=== PATIENT | male | born 1965 | race Caucasian/White ===

== ENCOUNTER → 2022-05-11 | Outpatient (CLI) | payer OTHER, SELFPAY ==
--- NOTE | 2022-05-11 16:58 | RAD_ITS ---
INDICATION: Trauma, work injury EXAMINATION/TECHNIQUE: X-RAY - LEFT XR Clavicle Unilateral 2 VIEWS COMPARISON: None. FINDINGS: SOFT TISSUES: No soft tissue swelling or gas. No radiopaque foreign body. BONES/JOINTS: No acute fracture. Joint spaces anatomically maintained. No sclerotic or destructive changes observed. RAD/Clavicle IMPRESSION: No acute bony abnormality. Electronically Signed: Clayton Joiner MD at 18:02 EST ,
--- NOTE | 2022-05-11 16:58 | RAD_ITS ---
INDICATION: Trauma, work injury EXAMINATION/TECHNIQUE: X-RAY - XR Spine Cervical 2 or 3 Views COMPARISON: None. FINDINGS: VERTEBRAE: Preserved vertebral body height. No acute fracture. No spondylolisthesis. Preservation of the normal cervical lordosis. DISCS: Degenerative disc space narrowing with spondylitic osteophytes C5-6 and C6-7. NECK SOFT TISSUES: No prevertebral soft tissue widening. LUNG APICES: Clear. RAD/Cerv Spine 2 or 3 Views IMPRESSION: Cervical spondylosis without acute bony abnormality. Electronically Signed: Clayton Joiner MD at 18:04 EST ,
== END | disposition home or self-care (01) ==
LOC: MTRAD 16:58
PROVIDERS: PCP Family Medicine; Referring Provider Physician Assistant Surgical; Visit Provider Physician Assistant Surgical
DX: S16.1XXA Strain of muscle, fascia and tendon at neck level, initial encounter (principal)
CPT/HCPCS: 72040; 73000

== ENCOUNTER 2022-06-28 17:30 | Outpatient (RCR) | payer OTHER, SELFPAY ==
--- NOTE | 2022-05-29 07:29 | HP.PTEVAL_ITS ---
Patient's Visit Information MANISHA MENDOZA is a 56 year old M referred to Physical Therapy by DANIELA Leonardo with a diagnosis of STRAIN NOF UNSPECIFIED MUSCLE ,TENDON SHOULDER LEFT ,STRAIN MUSCLE NECK. Date of Evaluation: 05/28/22 Physical Therapist: Manisha Shultz, PT, Cert MDT, OCS - Visit Plan Frequency: 3-4x/week Duration: 6 Weeks Plan: PT INTERVEVENTIONS ROM LEFT SHOULDER/CERVICAL ,POSTURAL STRENGTHENING , RTC/SCAPULAR STRENGTHENING AND MODALTIES NEEDED ,JOB SIMULATION TO RTW WITHOUT LIMIATIONS - Subjective This 56 y/o male presents to physical therapy with left shoulder and neck pain. Patient injury to left shoulder and cervical 02/16/23. 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 Seen DR 05/12/22 did x-rays of neck and shoulder s howed OA . Prescribed prednisone which patient stopped. Patient pain located anterior clavicle and shoulder and cervical pain left . Patient symptoms described as ache. Denies paresthesia/tingling. Aggravating leaning on shoulder ,pulling ,lifting overhead and unable to reach behind back. Alleviating factors rest ibuprofrin. Cervical pain is aggravating with looking up ,turning affects driving. Patient symptoms affects sleeping. Patient has cervical located occipital. Denies dizziness but tinnitus . Patient return to working with restriction with pushing/pulling and overhead work and lifting 20#. Patient goal no pain and RTW full. SOCAIL: . VOCATION: [employer] - Pain Left Shoulder Pain Intensity (Out of 10): 6 Pain Intensity Range: 10 Left Neck Pain Intensity (Out of 10): 7 Pain Intensity Range: 10 - Objective POSTURE: mild forward posture ,rounded shoulders head forward. PALAPTION: tender UT/levator , long head bicep. NEURO: denies paresthesia/tingling ,reflexes C5-C6-7 2/3. CERVICAL ROM: flexion min loss ,extension mod loss ,rotation mod loss ,lateral flexion mod loss. AROM : shoulder 145 degrees, abduction 150 degrees ,ER 90 degrees ,IR side of pelvis. MMT: (peak force) infraspinatus 17.2, subscapularis 19.7 ,supraspinatus 15.8 ,deltoid 22.1 of left shoulder - Special Tests L Shoulder Drop Sign - IS Test: Positive L Shoulder Empty Can - SS: Negative L Shoulder Neer - Impingement: Positive L Shoulder Real Lan - Impingement: Positive L Shoulder Speeds Test - Labrum/Biceps: Negative L Shoulder Shrug Sign - OA/Adhesive Capsulitis: Negative - Balance/Special Test Scores Quick DASH Score: 50.0000 - Goals Goal 1:: Patient to be I with HEP Goal Time Frame: 4-6 Weeks Goal 2:: Patient demonstrate 70% improvement with decrease pain and improved function with job demands. 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 and lifting without limitations Goal Time Frame: 4-6 Weeks - Rehabilitation Potential Physical Therapy Diagnosis: This patient has left shoulder pain left and neck with pain shoulder neck and decrease ROM shoulder , weakness left shoulder thus impairs ability with job demands benefits from skilled PT Rehabilitation Potential: Good - Anticipated Interventions Patient/Client Instruction: Educate patient on: Condition, Plan of Care For the Purpose of:: To decrease pain, To increase ROM, To improve muscle performance and motor function, To improve ability to perform ADL's, To increase tolerance to activity/condition/position, To improve ability of physical actions for home/community/work/leisure, To improve gait and locomotor functions, To improve health of tissue, To decrease soft tissue restriction, To increase flexibility/ROM, To prevent re-injury, Other Other: ROBI JAIME WITH LIMIATIONS Therapeutic Exercise to Include: Strength training, Endurance training, Postural training, Flexibilty training, Passive ROM, Active ROM, Scapular Streng th/Stabilization Comment: RTC For the Purpose of:: To decrease pain, To increase ROM, To improve muscle performance and motor function, To improve ability to perform ADL's, To improve performance and independence with ADL's, To decrease level of supervision to perform tasks, To improve health of tissue, To decrease soft tissue restriction, To increase flexibility/ROM, To prevent re-injury, Other Other: JOB DEMANDS WITH LIMITAIONS TENS: Yes IF ES: Yes Cryotherapy (ice pack, ice massage): Yes Thermo therapy (hot pack): Yes Ultrasound (thermal/non thermal): Yes For the Purpose of:: To decrease pain, To increase ROM, To improve nutrient delivery to tissue, To increase oxygenation perfusion, To improve health of tissue, To decrease soft tissue restriction, To increase flexibility/ROM, To improve endurance, To reduce risk of recurrence, To prevent re-injury, To improve tolerance to ADL's Thank you for the opportunity to evaluate your patient. For Medicare and Medicare HMO plans, please review the plan of care and approve it. It will need to be FAXED BACK to us at [phone] for Medicare purposes. For Medicare only, by signing this I certify the plan of care. Please let me know if there are questions or concerns regarding this plan of care. Physician Signature: Date:
--- NOTE | 2022-11-07 13:27 | HP.PTDCSUM ---
Discharge Summary D/C summary: It has been my pleasure to treat MANISHA MENDOZA referred by DANIELA Leonardo, with the diagnosis of STRAIN NOF UNSPECIFIED MUSCLE ,TENDON SHOULDER LEFT ,STRAIN MUSCLE NECK for a total of 12 visit(s). Discharge Date: Please see the following information for a summary of their discharge status. Subjective Subjective: Patient seen Dr plan to get MRI July [address] wants patient to follow the restriction Pain Left Shoulder: Pain Intensity (Out of 10): 5 Left Neck: Pain Intensity (Out of 10): 5 Overall Improvement % Improvement: 0 Objective Objective/Function: PALALPTION: tender long head bicep ,anterior AC AROM: shoulder flexion/abduction 140 degrees with pain ,ER 80 IR L5 MMT: (peak force) infraspinatus 13.8 ,supraspinatus 10.8 , deltoid anterior 13.4 , lateral 5 Goals Goal 1:: Patient to be I with HEP Goal 2:: Patient demonstrate 70% improvement with decrease pain and improved function with job demands. Goal 3:: Patient to improve AROM left shoulder flexion by 10 degrees to improve [place] activities and lifting for job demands Goal 4:: Patient to improve strength peak force of RTC/deltoid by 10 to improve ability with job demands Goal 5:: Patient to increase quick dash work demands by 5 points or> . Goal 6:: Patient to improve ability to perform [place] tasks and lifting without limitations Plan Plan: PLAN MRI D/C Information d/c sentence: If there are questions or concerns regarding this patient's physical therapy, please feel free to call me at [phone]. Thank you for the referral of this patient. Sincerely, Manisha Shultz, PT, Cert MDT, OCS Balance/Gait/Functional tests Balance/Special Test Scores Quick DASH Score: 50.0000
== END 2022-06-28 19:00 | disposition home or self-care (01) ==
LOC: PT 17:30
PROVIDERS: PCP Family Medicine; Referring Provider Physician Assistant Surgical; Visit Provider Physician Assistant Surgical
DX: S46.912D Strain of unspecified muscle, fascia and tendon at shoulder and upper arm level, left arm, subsequent encounter (principal); S16.1XXD Strain of muscle, fascia and tendon at neck level, subsequent encounter
CPT/HCPCS: 97110; 97162

== ENCOUNTER → 2022-07-12 | Outpatient (CLI) | payer OTHER, SELFPAY ==
--- NOTE | 2022-07-12 16:35 | MRI_ITS ---
INDICATION: pain EXAMINATION: MRI - MR Spine Cervical W/O Contrast TECHNIQUE: Multiplanar and multisequence MR images of the cervical spine were performed. IV Contrast Dosage and Agent: None. COMPARISON: 05/11/2022. FINDINGS: VERTEBRAE: Normal vertebral bodies and posterior elements. VERTEBRAL ALIGNMENT: Normal, including the craniocervical junction and cervicothoracic junction. No spondylolisthesis. There is preservation of the normal cervical lordosis. CERVICAL SPINAL CORD: Unremarkable in signal and morphology. C2/C3: Normal disc height and morphology. Normal spinal canal and neuroforamina. C3/C4: Normal disc height and morphology. Normal spinal canal and neuroforamina. C4/C5: Normal disc height and morphology. Normal spinal canal and neuroforamina. C5/C6, C6/C7: Mild spondylosis at C5-6 and C6-7 without significant disc bulge. Normal spinal canal and neuroforamina. C7/T1: Normal disc height and morphology. Normal spinal canal and neuroforamina. NECK SOFT TISSUES: No prevertebral soft tissue swelling. There is no cervical adenopathy. MRI/Spine Cervical (Routine) IMPRESSION: Mild spondylosis at C5-6 and C6-7 without significant disc bulge. Electronically Signed: Fabienne Dillard MD at 7:59 EDT ,
--- NOTE | 2022-07-12 17:05 | MRI_ITS ---
EXAM: MR LEFT UPPER EXTREMITY WITHOUT INTRAVENOUS CONTRAST, SHOULDER CLINICAL INDICATION: pain TECHNIQUE: Multiplanar and multisequence MR images of the left shoulder without intravenous contrast. This report was created using [employer] report generation technology. COMPARISON: None. FINDINGS: TENDONS: SUPRASPINATUS: Unremarkable. No supraspinatus tendon tear. INFRASPINATUS: Unremarkable. No infraspinatus tendon tear. SUBSCAPULARIS: Unremarkable. Intact. TERES MINOR: Unremarkable. Intact. BICEPS BRACHII, LONG HEAD: Intact long head of the biceps tendon which is normal in position and appearance. No os acromiale. The extra-articular biceps tendon is in the bicipital groove. LIGAMENTS: GLENOHUMERAL: Unremarkable. Intact. MUSCLES: Unremarkable. No rotator cuff muscle atrophy. FLUID: Unremarkable. No joint effusion. No subacromial-subdeltoid space bursal fluid. No bursitis. CARTILAGE: Unremarkable. Articular cartilage intact. GLENOID LABRUM: Unremarkable. No definite labral tear. BONES/JOINTS: Moderate to severe hypertrophic degenerative changes of the acromioclavicular joint with mild to moderate mass effect on the underlying soft tissues. Small amount of glenohumeral joint fluid. OTHER SOFT TISSUES: Unremarkable. No rotator interval edema. MRI/Upper Ext Joint Only(Routine) IMPRESSION: Moderate to severe hypertrophic degenerative changes of the acromioclavicular joint with mild to moderate mass effect on the underlying soft tissues. No significant rotator cuff or labral tear at this time. Electronically Signed: Abdoulaye Varghese MD at 3:11 EDT ,
== END | disposition home or self-care (01) ==
LOC: MRI 15:52
PROVIDERS: PCP Family Medicine; Referring Provider Physician Assistant Surgical; Visit Provider Physician Assistant Surgical
DX: S46.912A Strain of unspecified muscle, fascia and tendon at shoulder and upper arm level, left arm, initial encounter (principal); S16.1XXA Strain of muscle, fascia and tendon at neck level, initial encounter
CPT/HCPCS: 72141; 73221

== ENCOUNTER 2023-10-21 07:52 | Emergency (ER) | payer BC, SELFPAY ==
[2023-10-21] VITALS (20 sets, daily range): BP systolic 112–190; BP diastolic 75–180; PULSE 46–162; RESP 13–23; TEMP 36.2–36.4; O2SAT 93–99; BMI 31.4
--- NOTE | 2023-10-21 08:01 | EX.ED.DYSGE1 ---
HPI History of Present Illness Chief Complaint: Palpitations Informant: patient Onset/Context/Timing Onset: Today and Hours (1) Context: Sudden Onset Timing: Continuous Quality: Rapid heartbeat Location: Chest Worsened by: Nothing Relieved by: Nothing Narrative Narrative: Patient presents with palpitations that began approximate 1 hour prior to arrival. Patient states he has a history of paroxysmal atrial fibrillation and feels like he went back into it this morning. Patient states his heart feels like it was beating fast. Patient admits to some lightheadedness and dizziness. Patient states nothing makes it better and nothing makes it worse. Patient denies any chest pain. Patient admits to some shortness of breath with exertion today. Patient denies any fevers or chills. Patient denies any nausea or vomiting. Patient denies any diaphoresis. 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 [facility] Medical History Palpitations PVC (premature ventricular contraction) Hypertriglyceridemia Essential (primary) hypertension Hypothyroidism CAD in [place] artery Paroxysmal atrial fibrillation Knee pain Chronic headaches Arthritis Home Medications ?Medication ?Instructions ?Recorded ?Last Taken ?Type metoprolol succinate 50 mg 50 mg PO BID 03/12/23 Unknown History tablet,extended release 24 hr (Toprol XL) prasugrel 10 mg tablet (Effient) 10 mg PO DAILY 03/12/23 Unknown History losartan 50 mg tablet 50 mg PO DAILY 04/01/23 Unknown History cholecalciferol (vitamin D3) 1,250 50,000 unit PO QWEEK 07/02/23 Unknown History mcg (50,000 unit) capsule levothyroxine 175 mcg tablet 175 mcg PO DAILY 07/02/23 Unknown History prednisone 20 mg tablet 30 mg PO DAILY 07/02/23 Unknown History rivaroxaban 20 mg tablet (Xarelto) 20 mg PO QPM 42 days #42 tabs 10/21/23 Unknown Rx Allergy/AdvReac Type Severity Reaction Status Date / Time No Known Allergies Allergy Unverified 07/02/23 16:00 Family History Father Afib CVA (cerebral vascular accident) Mother COPD (chronic obstructive pulmonary disease) Heart disease Surgical History H/O knee surgery Hx of cholecystectomy Social History Smoking Status: Never smoker alcohol intake: current alcohol intake frequency: a few times a month ROS ROS ED Constitutional Constitutional ED: Denies chills or fever(s) Eyes Eyes: Denies blurry vision or change in vision ENT ENT ED: Denies rhinorrhea or sore throat Cardiovascular Cardiovascular: Reports palpitations; Denies chest pain Respiratory/Chest Respiratory/Chest: Reports dyspnea and dyspnea on exertion; Denies cough Gastrointestinal Gastrointestinal: Denies nausea or vomiting Genitourinary Genitourinary ED: Denies dysuria or hematuria Musculoskeletal Musculoskeletal: Denies back pain or neck pain Integumentary Denies abscess or rash Neurologic Neurologic: Denies headache(s) or weakness Allergic/Immunologic Allergic/Immunologic ED: Denies mouth swelling or urticaria EXAM Physical Exam Const Vital Signs: 10/21/23 07:53 10/21/23 08:00 10/21/23 08:00 Temperature 97.1 F L Temperature Source Temporal Pulse Rate 162 H 154 H Pulse Rate [1 (Initial Baseline)] Pulse Rate [2] Pulse Rate [3] Respiratory Rate 20 H 20 H Respiratory Rate [1 (Initial Baseline)] Respiratory Rate [2] Respiratory Rate [3] Respiratory Effort Normal Blood Pressure 190/180 H 158/118 H Blood Pressure [1 (Initial Baseline)] Blood Pressure [2] Blood Pressure [3] Blood Pressure Mean 183 132 Pulse Ox 99 97 Oxygen Delivery Method Room Air Oxygen Delivery Method [1 (Initial Baseline)] Oxygen Delivery Method [2] Oxygen Delivery Method [3] 10/21/23 08:08 10/21/23 08:15 10/21/23 08:30 Temperature Temperature Source Pulse Rate 156 H 83 Pulse Rate [1 (Initial Baseline)] Pulse Rate [2] Pulse Rate [3] Respiratory Rate 15 23 H Respiratory Rate [1 (Initial Baseline)] Respiratory Rate [2] Respiratory Rate [3] Respiratory Effort Blood Pressure 184/158 H 139/111 H Blood Pressure [1 (Initial Baseline)] Blood Pressure [2] Blood Pressure [3] Blood Pressure Mean 164 119 Pulse Ox 98 98 97 Oxygen Delivery Method Room Air Oxygen Delivery Method [1 (Initial Baseline)] Oxygen Delivery Method [2] Oxygen Delivery Method [3] 10/21/23 08:45 10/21/23 09:00 10/21/23 09:15 Temperature Temperature Source Pulse Rate 77 82 Pulse Rate [1 (Initial Baseline)] Pulse Rate [2] Pulse Rate [3] Respiratory Rate 14 13 Respiratory Rate [1 (Initial Baseline)] Respiratory Rate [2] Respiratory Rate [3] Respiratory Effort Blood Pressure 139/101 H 145/96 H 134/90 H Blood Pressure [1 (Initial Baseline)] Blood Pressure [2] Blood Pressure [3] Blood Pressure Mean 112 110 103 Pulse Ox 97 96 Oxygen Delivery Method Room Air Oxygen Delivery Method [1 (Initial Baseline)] Oxygen Delivery Method [2] Oxygen Delivery Method [3] 10/21/23 09:30 10/21/23 09:50 10/21/23 10:00 Temperature Temperature Source Pulse Rate 84 Pulse Rate [1 (Initial Baseline)] Pulse Rate [2] Pulse Rate [3] Respiratory Rate 16 Respiratory Rate [1 (Initial Baseline)] Respiratory Rate [2] Respiratory Rate [3] Respiratory Effort Blood Pressure 125/96 H 125/96 H Blood Pressure [1 (Initial Baseline)] Blood Pressure [2] Blood Pressure [3] Blood Pressure Mean 106 105 Pulse Ox 98 97 Oxygen Delivery Method Room Air Oxygen Delivery Method [1 (Initial Baseline)] Oxygen Delivery Method [2] Oxygen Delivery Method [3] 10/21/23 10:00 10/21/23 11:00 10/21/23 12:09 Temperature Temperature Source Pulse Rate 84 97 113 H Pulse Rate [1 (Initial Baseline)] Pulse Rate [2] Pulse Rate [3] Respiratory Rate 16 16 14 Respiratory Rate [1 (Initial Baseline)] Respiratory Rate [2] Respiratory Rate [3] Respiratory Effort Blood Pressure 136/108 H 136/89 H 134/95 H Blood Pressure [1 (Initial Baseline)] Blood Pressure [2] Blood Pressure [3] Blood Pressure Mean 115 104 108 Pulse Ox 97 97 96 Oxygen Delivery Method Room Air Room Air Oxygen Delivery Method [1 (Initial Baseline)] Oxygen Delivery Method [2] Oxygen Delivery Method [3] 10/21/23 13:26 10/21/23 13:26 10/21/23 13:34 Temperature 97.6 F L Temperature Source Pulse Rate 95 113 H Pulse Rate [1 (Initial Baseline)] 112 H Pulse Rate [2] 121 H Pulse Rate [3] 46 L Respiratory Rate 16 16 Respiratory Rate [1 (Initial Baseline)] 16 Respiratory Rate [2] 16 Respiratory Rate [3] 18 Respiratory Effort Blood Pressure 145/88 H 145/88 H Blood Pressure [1 (Initial Baseline)] 140/98 H Blood Pressure [2] 140/98 H Blood Pressure [3] 112/94 H Blood Pressure Mean 107 Pulse Ox 97 97 Oxygen Delivery Method Room Air Room Air Oxygen Delivery Method [1 (Initial Baseline)] Room Air Oxygen Delivery Method [2] Room Air Oxygen Delivery Method [3] Room Air 10/21/23 13:42 10/21/23 13:46 10/21/23 13:50 Temperature Temperature Source Pulse Rate Pulse Rate [1 (Initial Baseline)] Pulse Rate [2] Pulse Rate [3] Respiratory Rate Respiratory Rate [1 (Initial Baseline)] Respiratory Rate [2] Respiratory Rate [3] Respiratory Effort Blood Pressure Blood Pressure [1 (Initial Baseline)] Blood Pressure [2] Blood Pressure [3] Blood Pressure Mean Pulse Ox Oxygen Delivery Method Room Air Room Air Room Air Oxygen Delivery Method [1 (Initial Baseline)] Oxygen Delivery Method [2] Oxygen Delivery Method [3] Positive well nourished and well developed General Appearance ED: well developed and NAD HEENT Reports moist mucous membranes Neck supple and no JVD Chest Wall inspection of chest normal and palpation of chest normal Resp normal respiratory effort and clear to auscultation bilaterally Cardio Rate: tachycardic Rhythm: abnormal rhythm irregularly irregular GI non-tender and non-distended Palpation: soft Extremity normal to inspection General Extremety ED: Negative for edema or tenderness General Extremity: Negative for edema Neuro oriented x3, CN's II-XII intact bilaterally and no sensory deficits noted Sensorium / Orientation: alert Motor Exam: strength 5/5 throughout Psych mental status grossly normal MDM MDM MDM Narrative Medical decision making narrative: Differential diagnosis includes A-fib with rapid ventricular response, cardiac ischemia, electrolyte abnormality, hypothyroidism, hyperthyroidism, pneumonia, and pneumothorax. EKG will be obtained to assess for cardiac dysrhythmia and cardiac ischemia. X-ray will be obtained to assess for pneumonia and pneumothorax. CBC will be obtained to assess for leukocytosis and anemia. Basic metabolic profile will be obtained to assess for electrolyte abnormality and renal function. High-sensitivity troponin will be obtained to assess for cardiac ischemia. 2-hour repeat high-sensitivity troponin will be obtained to assess for ongoing cardiac ischemia. TSH will be obtained to assess for hyperthyroidism and hypothyroidism. Lab Data Attestation: I reviewed the patient's lab results. Lab results narrative: CBC was reviewed. There is a mild leukocytosis of 15.0. The remainder is within normal limits. Basic metabolic profile was reviewed and was essentially within normal limits. High-sensitivity troponin was reviewed and was normal at 6. 2-hour repeat high-sensitivity troponin was reviewed and was normal at 6. TSH was reviewed and was elevated at 27.8. Labs: Laboratory Results - last 24 hr 10/21/23 10/21/23 08:05 10:05 WBC 15.0 H RBC 4.85 Hgb 14.8 Hct 44.1 MCV 90.9 MCH 30.5 MCHC 33.6 RDW Std Deviation 41.6 RDW Coeff of Alondra 12.7 Plt Count 285 MPV 9.8 Immature Gran % (Auto) 2.100 H Neut % (Auto) 75.7 H Lymph % (Auto) 15.2 L [place] % (Auto) 5.8 Eos % (Auto) 0.6 Baso % (Auto) 0.6 Absolute Neuts (auto) 11.3 H Absolute Lymphs (auto) 2.28 Nucleated RBC % 0 Sodium 138 Potassium 4.2 Chloride 106 Carbon Dioxide 25.0 Anion Gap 7 BUN 14 Creatinine 0.93 Estim Creat Clear Calc 119.29 Est GFR (MDRD) Af Amer 107 Est GFR (MDRD) Non-Af 88 BUN/Creatinine Ratio 15.0 Glucose 158 H Calcium 9.3 Magnesium 2.0 Troponin I High Sens 6 6 TSH 27.80 H Radiography Chest X-Ray - ED: 1 View, Read by ED Physician, Read by Radiologist and No Acute Disease Diagnostic Testing: Clinical Impression(s) from Imaging Studies Chest X-Ray 10/21/23 08:13 IMPRESSION: Normal x-ray examination of the chest. Electronically Signed: Beau Santos MD at 8:27 EDT , Portable 1 view chest x-ray was obtained. On my independent interpretation, lung lag[place] are clear. There is normal cardiac silhouette. Bony thorax is normal. There is no acute process noted. Radiologist also interpreted the x-ray and agrees. EKG Initial EKG: Attestation: I personally reviewed and interpreted this EKG as follows: Interpretation: Atrial Fibrillation (150) and Non-Specific ST Changes Comments: EKG was obtained. On my independent interpretation, shows atrial fibrillation with a rate of 150. QRS interval is normal at 92 ms. QTc interval was slightly prolonged at 464 ms. There is left axis deviation at -36. There are nonspecific ST-T wave changes noted. Prior EKG tracings: available for review Prior: Unchanged (03/07/2023) Follow-up EKG: Attestation: I personally reviewed and interpreted this EKG as follows: Interpretation: No Acute Injury Pattern and Sinus Bradycardia (54) Comments: EKG was obtained. On my independent interpretation, it showed a sinus bradycardia with a rate of 54. [place] interval, QRS interval, and QTc intervals were all normal. [place] was normal. There are no acute ST or T wave changes. Treatment and Re-Evaluation :: Patient was given aspirin. Patient was started on Cardizem. Patient's heart rate improved but remained in atrial fibrillation. Patient requested to be cardioverted. Case was discussed with Dr. Klein from cardiology. He agrees with this. He recommended starting the patient back on his Xarelto. Patient was given a dose of Xarelto here. Informed consent was obtained. Patient was advised of the risks and benefits of sedation and cardioversion. Patient was given the opportunity ask questions. Patient had no further questions. Patient was sedated with a total of 100 mg of propofol. After adequate sedation, the patient was cardioverted with 150 J of synchronized cardioversion without success. Patient was then cardioverted with 200 J of synchronized cardioversion with return to a sinus bradycardia. Patient woke up without any complications. Patient had no hypoxic episodes. Repeat EKG will be obtained. Procedures Procedural Sedation 1 (Initial Baseline): Consent Signed: Yes Any Problems With Anesthesia: No You/Your family experience fever (hyperthermia) w/anesthesia: No Sedation medication: Propofol Dose: 100 Route: IV [place]amp[place] Score: Class II ASA Classification: II Discharge Plan Triage Chief Complaint: Palpitations ED Provider: Riley Downing Dx/Rx/DC Orders Clinical Impression: Paroxysmal atrial fibrillation, Hypothyroidism, Palpitations Instructions: ED AFIB, ED Hypothyroidism Prescriptions: Changed Xarelto 20 mg tablet 20 mg PO QPM 42 Days Qty: 42 0RF Rx Instructions: must administer with evening meal No Action metoprolol succinate [Toprol XL] 50 mg tablet extended release 24 hr 50 mg PO BID prasugrel [Effient] 10 mg tablet 10 mg PO DAILY losartan 50 mg tablet 50 mg PO DAILY levothyroxine 175 mcg tablet 175 mcg PO DAILY Patient Comments: take 1 tablet by mouth once daily cholecalciferol (vitamin D3) 1,250 mcg (50,000 unit) capsule 50,000 unit PO QWEEK Patient Comments: TAKE 1 CAPSULE BY MOUTH ONCE A WEEK prednisone 20 mg tablet 30 mg PO DAILY Primary Care Provider: Jack Davenport Referrals: Jack Davenport DO [Primary Care Provider] - 5-7 Days Zack Chamorro MD [Med Staff - Active Staff] - 5-7 Days Print Language: Croatian Disposition Disposition: Home, Self Care
--- NOTE | 2023-10-21 08:13 | RAD_ITS ---
STUDY: X-RAY CHEST REASON FOR EXAM: Male, 57 years old. Chest pain TECHNIQUE: Single AP portable view of the chest. COMPARISON: EKG electrodes are seen. FINDINGS: The lungs are clear and expanded. There is no demonstrated pleural abnormality. Normal size heart. Normal mediastinum and navin. Normal visualized pulmonary arteries. Normal visualized aortic arch and descending thoracic aorta. There are degenerative changes of the visualized thoracic spine. Normal visualized ribs, clavicles, and shoulders. There is no demonstrated abnormality of the visualized soft tissue structures of the upper abdomen. RAD/Chest 1 View (Portable) IMPRESSION: Normal x-ray examination of the chest. Electronically Signed: Beau Santos MD at 8:27 EDT ,
--- NOTE | 2023-10-21 08:15 | EKG12_ITS ---
Test Reason : PALPITATIONS Blood Pressure : / mmHG Vent. Rate : 150 BPM Atrial Rate : 000 BPM P-R Int : 000 ms QRS Dur : 092 ms QT Int : 294 ms P-R-T Axes : 000 -36 085 degrees QTc Int : 464 ms Critical Test Result: High HR Atrial fibrillation with rapid ventricular response Left axis deviation Nonspecific ST and T wave abnormality Abnormal ECG Confirmed by Bob Klein ([id number]), editor house organ KAYLA MCDONALD ([id number]) on 10/22/2023 8:05:43 AM Referred By: EMILIANA Confirmed By:Bob Klein
[2023-10-21] MEDS: Aspirin 81 MG TAB.CHEW 324 MG PO (08:17)
[2023-10-21] MEDS: dilTIAZem 25 MG/5 ML Vial IV BOLUS (08:17)
[2023-10-21 08:19] LABS: Absolute Lymphocyte Count 2.28 X10^3/uL (0.83-4.51); Absolute Neutrophil Count 11.3 X10^3/uL (2.0-7.7); Basophil# 0.09 X10^3/uL; Basophil% 0.6 % (0-1); Eosinophil# 0.09 X10^3/uL; Eosinophils% 0.6 % (0-5); Hematocrit 44.1 % (40-54); Hemoglobin 14.8 g/dL (13.0-16.5); Lymphocyte # 2.28 X10^3/ul (0.83-4.51); Lymphocyte % 15.2 % (19-41); Mean Corp Hgb Conc 33.6 g/dL (32-36); Mean Corpuscular Hgb 30.5 pg (27.0-32.0); Mean Corpuscular Volume 90.9 fL (80-94); Mean Platelet Vol. 9.8 fl (6.2-12.0); Monocyte# 0.87 X10^3/uL; Monocyte% 5.8 % (0-10); NRBC Flagged by Analyzer 0 % (0-5); Neutrophil # 11.34 X10^3/uL (2.7-7.7); Neutrophil % 75.7 % (47-70); Platelet Count 285 K/mm3 (150-450); RBC Distribution Width CV 12.7 % (11.6-14.6); RBC Distribution Width SD 41.6 fl (35.1-43.9); Red Blood Count 4.85 M/mm3 (4.6-6.2)
[2023-10-21 08:52] LABS: Anion Gap 7 (5-15); BUN 14 mg/dL (7-18); Calcium,Total 9.3 mg/dL (8.5-10.1); Chloride 106 mmol/L (98-107); Creatinine, Serum 0.93 mg/dL (0.70-1.30); EST Glomerular Filtration Rate 88 mL/min (>60); Est Glom Filt Rate - Afr Amer 107 mL/min (>60); Estimated Creatinine Clearance 119.29 ml/min; Glucose 158 mg/dL (74-106); Potassium 4.2 mmol/L (3.5-5.1); Sodium Level 138 mmol/L (136-145); Troponin-I HS (w/2H Reflex) 6 pg/mL (3.0-78.0)
[2023-10-21 10:13] LABS: Reflex Troponin-HS? (from REC) Y
[2023-10-21 10:45] LABS: Troponin-I HS 6 pg/mL (3.0-78.0)
[2023-10-21] MEDS: Rivaroxaban 20 MG Tablet PO (11:24)
[2023-10-21] MEDS: Propofol 200 MG/20 ML Vial IV BOLUS (13:26)
--- NOTE | 2023-10-21 13:49 | EKG12_ITS ---
Test Reason : REPEAT Blood Pressure : / mmHG Vent. Rate : 054 BPM Atrial Rate : 054 BPM P-R Int : 146 ms QRS Dur : 096 ms QT Int : 402 ms P-R-T Axes : 044 -15 023 degrees QTc Int : 381 ms Sinus bradycardia Otherwise normal ECG Confirmed by Bob Klein ([id number]), story editor KAYLA MCDONALD ([id number]) on 10/22/2023 8:05:57 AM Referred By: Confirmed By:Bob Klein
== END 2023-10-21 14:24 | disposition home or self-care (01) ==
PROVIDERS: Emergency Provider Emergency Medicine; PCP Family Medicine; Visit Provider Emergency Medicine
DX: I48.0 Paroxysmal atrial fibrillation (principal); E03.9 Hypothyroidism, unspecified; R00.2 Palpitations; I25.10 Atherosclerotic heart disease of native coronary artery without angina pectoris
CPT/HCPCS: 71045; 80048; 83735; 84443; 84484; 85025; 92960; 93005; 96374; 99283; J7030; A4216

== ENCOUNTER 2024-11-16 07:14 | Observation (INO) | payer BC, SELFPAY ==
[2024-11-16] VITALS (13 sets, daily range): BP systolic 127–201; BP diastolic 64–105; PULSE 48–60; RESP 13–18; TEMP 36.2–37.3; O2SAT 95–100; BMI 71.8; BMI 31.8
--- NOTE | 2024-11-16 07:22 | EKG12_ITS ---
Test Reason : CP Blood Pressure : */* mmHG Vent. Rate : 59 BPM Atrial Rate : 59 BPM P-R Int : 160 ms QRS Dur : 96 ms QT Int : 402 ms P-R-T Axes : 80 -10 34 degrees QTcB Int : 397 ms Sinus bradycardia Otherwise normal ECG Confirmed by Bob Klein ([id number]), brands editor KAYLA MCDONALD ([id number]) on 11/17/2024 1:14:17 PM Referred By: TL/BB Confirmed By: Bob Klein
--- NOTE | 2024-11-16 07:22 | RAD_ITS ---
PROCEDURE: CHEST 1 VIEW (PORTABLE) 11/16/2024 REASON FOR EXAM: CHEST PAIN TECHNIQUE: Frontal view of the chest. COMPARISON: Chest x-ray study dated 10/21/2023. FINDINGS: Hardware: Cardiac leads overlie the chest. Heart: Heart size and configuration are within normal limits. Mediastinum: Pulmonary vasculature is unremarkable. Trachea is midline. Mediastinal silhouette is within normal limits. Lungs: Lungs are expanded and clear without evidence of atelectasis, consolidation, effusion or pneumonic infiltrate. There are no pneumothoraces. Bones: Mild degenerative changes of the thoracic spine are noted. The remaining bony thorax appears unremarkable. Other: Soft tissues appear unremarkable. RAD/Chest 1 View (Portable) IMPRESSION: No acute cardiopulmonary process is identified radiographically. Reading Location: [id number]
--- NOTE | 2024-11-16 07:26 | ED.VIS.CHEST ---
HPI History of Present Illness Chief Complaint: Chest Pain Informant: patient Narrative Narrative: Waxing waning chest heaviness since . Reports dyspnea worse with exertion. Pain into his back. Over the weekend noted change in color balance feet. No pain in this. Hypertension hyperlipidemia. Mother AR in the 50s. She reported maker lesion 2 years ago with 1 stent placed at [facility]. He is currently followed by Dr. Chamorro. Currently on aspirin. None taken today. He states followed up 4 weeks ago everything was fine. He had a cough on Saturday that resolved. No recent travel surgeries or immobilizations. No history of PE or DVT. States this feels similar to when he had symptoms leading to his stent 2 years ago. No stress test since then. Pain is 4 out of 10 currently. Prior Similar Symptoms: Yes and With Prior AR CVD Risk Factors: Positive for Hypertension, Hypercholesterolemia and Family History 1' </=55; Negative for Diabetes or Smoking PE Risk Factors: Negative for Recent Travel/Surgery, Recent Immobilization or Prior DVT or PE [facility] Medical History Palpitations PVC (premature ventricular contraction) Hypertriglyceridemia Essential (primary) hypertension Hypothyroidism CAD in [place] artery Paroxysmal atrial fibrillation Knee pain Chronic headaches Arthritis Home Medications ?Medication ?Instructions ?Recorded ?Last Taken ?Type losartan 50 mg tablet 50 mg PO DAILY 04/01/23 11/16/24 History cholecalciferol (vitamin D3) 1,250 50,000 unit PO QWEEK 07/02/23 11/15/24 History mcg (50,000 unit) capsule folic acid 1 mg tablet 1 mg PO QDAY 04/07/24 11/16/24 History hydroxychloroquine 200 mg tablet 200 mg PO BID 04/07/24 11/16/24 History methotrexate sodium 2.5 mg tablet 20 mg PO QWEEK 04/07/24 11/15/24 History levothyroxine 200 mcg tablet 200 mcg PO QDAY 08/20/24 11/15/24 History metoprolol succinate 50 mg 50 mg PO BID #180 tabs 08/20/24 11/16/24 Rx tablet,extended release 24 hr tramadol 50 mg tablet 100 mg PO TID PRN pain 08/20/24 11/16/24 History escitalopram oxalate 20 mg tablet 20 mg PO DAILY 11/16/24 11/16/24 History ibuprofen 200 mg tablet (Advil) 400 mg PO Q6H PRN fever or pain 11/16/24 11/15/24 History Allergy/AdvReac Type Severity Reaction Status Date / Time No Known Allergies Allergy Verified 11/16/24 07:16 Family History Father Afib CVA (cerebral vascular accident) Mother COPD (chronic obstructive pulmonary disease) Heart disease Surgical History H/O knee surgery Hx of cholecystectomy Social History Smoking Status: Former smoker alcohol intake: current alcohol intake frequency: a few times a month ROS ROS ED Constitutional Constitutional ED: Denies chills, fever(s) or sweats ENT ENT ED: Denies sore throat Cardiovascular Cardiovascular: Reports chest pain; Denies leg edema, palpitations or racing heartbeat Respiratory/Chest Respiratory/Chest: Reports cough and dyspnea; Denies dyspnea on exertion Gastrointestinal Gastrointestinal: Denies abdominal pain, diarrhea, nausea or vomiting Genitourinary Genitourinary ED: Denies dysuria, hematuria or urinary frequency Musculoskeletal Musculoskeletal: Denies back pain, extremity pain or neck pain Integumentary Denies rash or wounds Neurologic Neurologic: Denies headache(s), paresthesias or weakness EXAM Physical Exam Const Vital Signs: 11/16/24 07:14 11/16/24 07:16 11/16/24 07:16 Temperature 99.1 F 98.7 F Temperature Source Oral Temporal Pulse Rate 59 L 60 Respiratory Rate 16 14 Respiratory Effort Normal Blood Pressure 201/97 H 165/105 H Blood Pressure Mean 131 125 Pulse Ox 99 99 Oxygen Delivery Method Room Air Room Air 11/16/24 07:38 11/16/24 07:53 11/16/24 08:14 Temperature 98.1 F Temperature Source Oral Pulse Rate 55 L 52 L Respiratory Rate 13 Respiratory Effort Blood Pressure 164/101 H 147/89 H Blood Pressure Mean 108 Pulse Ox 97 Oxygen Delivery Method Room Air Room Air 11/16/24 08:18 11/16/24 08:53 Temperature Temperature Source Pulse Rate 51 L 49 L Respiratory Rate Respiratory Effort Blood Pressure 143/85 H 127/83 H Blood Pressure Mean Pulse Ox Oxygen Delivery Method Positive well nourished and well developed General Appearance ED: well developed and NAD HEENT Reports moist mucous membranes normocephalic and atraumatic Eyes General Eye ED: Yes normal appearance of both eyes Neck full ROM Chest Wall Chest: Negative for tenderness Resp normal respiratory effort and normal air movement Effort and Inspection: symmetric chest movement; Negative for respiratory distress Cardio regular rate, regular rhythm and no murmurs Peripheral Pulses: pulses 2+ throughout GI normal to inspection, nondistended, normoactive bowel sounds and non-tender Palpation: Negative for guarding or rebound tenderness present Extremity normal to inspection General Extremety ED: Negative for edema or tenderness General Extremity: Negative for edema Neuro oriented x3 and no sensory deficits noted Sensorium / Orientation: awake and alert Skin no rashes or lesions noted and no wounds Heart Score History: Moderately Suspicious ECG: Normal Age: >45 - <65 years Risk Factors: >/= 3 Risk Factors or History of CAD Troponin: </= Normal Limit Score: 4 MDM MDM MDM Narrative Medical decision making narrative: Interventions / MDM: Differential diagnosis: Chest pain, history of coronary disease, history of hypertension Diagnosis considered but do not suspect: No clinical PE symptoms, no hypoxia no tachycardia My EKG interpretation: Sinus rate of 59, no ST or T wave changes QTc 397. Imaging independently reviewed and interpreted by myself: 1 view chest x-ray: No acute process. External documents reviewed: N/A Test considered but not ordered:N/A ED course: Persistent chest heaviness for last 4 days. Waxing waning worse with exertion similar to AR 2 years ago. EKG obtained sinus rhythm rate of [address] or T wave changes. Cardiac workup initiated. Aspirin ordered nitro sublingual ordered. 0818: After 1 nitro symptoms down to 2 headache with Tylenol was given. Additional nitro being given currently. 0835: Pain-free after second nitroglycerin. Transdermal nitro placed. Initial troponin returned at 7. Creatinine 0.72. Hemoglobin 13.2. Chest x-ray negative. With symptoms similar to his AR couple years ago currently symptom-free. No recent stress test. Will discuss with hospitalist service for admission. I spoke with Dr. Hill for admission to PCU. Re-evaluation: stable Disposition discussed with patient/family/significant other: Patient and family Case discussed with consulting clinician: Hospitalist This note was generated with [employer] dictation software. It may contain incorrect words, spelling, and punctuation that were not noted in checking the note before signing. Lab Data Attestation: I reviewed the patient's lab results. Labs: Laboratory Results - last 24 hr 11/16/24 07:50 WBC 8.6 RBC 4.15 L Hgb 13.2 Hct 37.5 L MCV 90.4 MCH 31.8 MCHC 35.2 RDW Std Deviation 44.5 H RDW Coeff of Alondra 13.7 Plt Count 207 MPV 9.9 Immature Gran % (Auto) 1.400 H Neut % (Auto) 69.0 Lymph % (Auto) 19.5 [place] % (Auto) 8.4 Eos % (Auto) 1.3 Baso % (Auto) 0.4 Absolute Neuts (auto) 5.9 Absolute Lymphs (auto) 1.67 Nucleated RBC % 0 PT 13.1 INR 1.0 APTT 30.3 Sodium 140 Potassium 4.2 Chloride 105 Carbon Dioxide 24.1 Anion Gap 11 BUN 9 Creatinine 0.72 Estim Creat Clear Calc 245.08 Est GFR (MDRD) Non-Af 106 BUN/Creatinine Ratio 13.1 Glucose 124 H Calcium 9.2 Magnesium 1.8 Troponin T High Sens 7 Radiography Diagnostic Testing: Clinical Impression(s) from Imaging Studies Chest X-Ray 11/16/24 07:22 IMPRESSION: No acute cardiopulmonary process is identified radiographically. Reading Location: [id number] Discharge Plan Disposition Disposition: Acute Care Hospital [facility] Discharge Date/Time: 11/16/24 09:24
[2024-11-16] MEDS: Nitroglycerin SL (ED/IMG/CATH) 0.4 MG TABLET SL ×2 (07:38→08:18)
[2024-11-16 07:58] LABS: Hematocrit 37.5 % (40-54); Hemoglobin 13.2 g/dL (13.0-16.5); Immature Granulocytes Count 0.120 X10^3/uL (0.0-0.0); Mean Corp Hgb Conc 35.2 g/dL (32-36); Mean Corpuscular Volume 90.4 fL (80-94); Mean Platelet Vol. 9.9 fl (6.2-12.0); NRBC Flagged by Analyzer 0 % (0-5); Platelet Count 207 K/mm3 (150-450); RBC Distribution Width CV 13.7 % (11.6-14.6); RBC Distribution Width SD 44.5 fl (35.1-43.9); Red Blood Count 4.15 M/mm3 (4.6-6.2); White Blood Count 8.6 K/mm3 (4.4-11.0)
[2024-11-16 08:08] LABS: Prothrombin Time (Protime)PT. 13.1 SECONDS (11.7-14.9)
[2024-11-16 08:09] LABS: Partial Thromboplast Time 30.3 Seconds (24.1-36.2)
[2024-11-16 08:29] LABS: Anion Gap 11 (5-15); BUN 9 mg/dL (4-19); BUN/Creat Ratio 13.1 RATIO (10-20); Calcium,Total 9.2 mg/dL (7.6-11.0); Carbon Dioxide 24.1 mmol/L (21.0-32.0); Chloride 105 mmol/L (98-108); Estimated Creatinine Clearance 245.08 ml/min (50-250); Glucose 124 mg/dL (70-99); Potassium 4.2 mmol/L (3.3-5.1); Troponin T High Sensitivity 7 ng/L (<=22)
[2024-11-16] MEDS: Nitroglycerin Oint 1 INCH PACKET TD (08:53)
--- NOTE | 2024-11-16 09:00 | PCM.HP.STD ---
HPI - General General Date of Admission: 11/16/24 Date of Service: 11/16/24 Chief Complaint: Chest pressure for 4 days since HPI Narrative MANISHA MENDOZA, is a 58 M with history of CAD status post stent on 11/26/2022 came to ED with chest discomfort/pressure since . It started when he was working on the roof. He carries sometimes heavy load 15 to 20 pounds. He states chest discomfort is constant but waxes and wanes on mild exertion/walking associated with shortness of breath. Currently is not short of breath while sitting or laying down. Mild dizziness at home but no syncope. In ED, twelve-lead EKG shows sinus bradycardia but no ST-T changes. First troponin negative. He has nitro ointment. He was very diaphoretic with headache 02/05. Nitro ointment discontinued PFSH Medical History Palpitations PVC (premature ventricular contraction) Hypertriglyceridemia Essential (primary) hypertension Hypothyroidism CAD in [place] artery Paroxysmal atrial fibrillation Knee pain Chronic headaches Arthritis Home Medications ?Medication ?Instructions ?Recorded ?Last Taken ?Type losartan 50 mg tablet 50 mg PO DAILY 04/01/23 11/16/24 History cholecalciferol (vitamin D3) 1,250 50,000 unit PO QWEEK 07/02/23 11/15/24 History mcg (50,000 unit) capsule folic acid 1 mg tablet 1 mg PO QDAY 04/07/24 11/16/24 History hydroxychloroquine 200 mg tablet 200 mg PO BID 04/07/24 11/16/24 History methotrexate sodium 2.5 mg tablet 20 mg PO QWEEK 04/07/24 11/15/24 History levothyroxine 200 mcg tablet 200 mcg PO QDAY 08/20/24 11/15/24 History metoprolol succinate 50 mg 50 mg PO BID #180 tabs 08/20/24 11/16/24 Rx tablet,extended release 24 hr tramadol 50 mg tablet 100 mg PO TID PRN pain 08/20/24 11/16/24 History escitalopram oxalate 20 mg tablet 20 mg PO DAILY 11/16/24 11/16/24 History ibuprofen 200 mg tablet (Advil) 400 mg PO Q6H PRN fever or pain 11/16/24 11/15/24 History Allergy/AdvReac Type Severity Reaction Status Date / Time No Known Allergies Allergy Verified 11/16/24 07:16 Family History Father Afib CVA (cerebral vascular accident) Mother COPD (chronic obstructive pulmonary disease) Heart disease Surgical History H/O knee surgery Hx of cholecystectomy Social History Smoking Status: Former smoker alcohol intake: current alcohol intake frequency: a few times a month ROS ROS Narrative Constitutional: Reports acute onset of fatigue and weakness. No fever. HEENT: Reports systems reviewed and no addt'l complaints, except as documented Respiratory/Chest: No acute shortness of breath or respiratory distress or wheezing. CVS: As described in HPI Gastrointestinal: Denies coffee ground emesis, hematemesis or vomiting Genitourinary: Denies burning urination or new urinary tract symptoms Musculoskeletal: Denies acute joint pain or limited range of motion. No acute injury Neurologic: Denies seizure-like symptoms. skin: No ulcer. No rash Endocrinology: Reports systems reviewed and no addt'l complaints, except as documented Hematologic/Lymphatic: Reports systems reviewed and no addt'l complaints, except as documented Rest 14 ROS are negative except as mentioned in HPI Vital Signs Vital Signs Vital Signs: 11/16/24 07:14 11/16/24 07:16 11/16/24 07:16 Temperature 99.1 F 98.7 F Temperature Source Oral Temporal Pulse Rate 59 L 60 Respiratory Rate 16 14 Respiratory Effort Normal Blood Pressure 201/97 H 165/105 H Blood Pressure Mean 131 125 Pulse Ox 99 99 Oxygen Delivery Method Room Air Room Air 11/16/24 07:38 11/16/24 07:53 11/16/24 08:14 Temperature 98.1 F Temperature Source Oral Pulse Rate 55 L 52 L Respiratory Rate 13 Respiratory Effort Blood Pressure 164/101 H 147/89 H Blood Pressure Mean 108 Pulse Ox 97 Oxygen Delivery Method Room Air Room Air 11/16/24 08:18 11/16/24 08:53 Temperature Temperature Source Pulse Rate 51 L 49 L Respiratory Rate Respiratory Effort Blood Pressure 143/85 H 127/83 H Blood Pressure Mean Pulse Ox Oxygen Delivery Method Weight Weight: 574 lb 8.394 oz Body Mass Index (BMI) 71.8 Physical Exam Narrative General: Alert, Oriented x3, Cooperative. Diaphoretic/sweating HEENT: Atraumatic, PERRLA, EOMI, Normocephalic. Oral: No Gingival or Mucosal Lesions/ Ulcerations Neck: Supple, No JVD, Negative Carotid Bruits Chest wall/Lungs: Air entry diminished in bilateral lung bases. No crepitation/rhonchi Cardiovascular: Sinus bradycardia normal S1,S2, No M/G/R Abdomen: Bowel Sounds Present, Soft, Non Tender, Non-Distended : No dysuria. urine light yellow color. No renal angle tenderness. No suprapubic tenderness. Extremities: No edema, Capillary Refill Less than 3 Seconds Skin: No rashes, No breakdown Musculoskeletal: No Tenderness to Palpation of Joints or Extremities Neurological: Cranial nerves II-XII grossly intact, DTR 2+/4. No acute focal neurological deficit. Psych/Mental Status: Flat affect Results Lab / Micro Data 11/16/24 07:50 11/16/24 07:50 Labs: Laboratory Results - last 24 hr 11/16/24 07:50: WBC 8.6, RBC 4.15 L, Hgb 13.2, Hct 37.5 L, MCV 90.4, MCH 31.8, MCHC 35.2, RDW Std Deviation 44.5 H, RDW Coeff of Alondra 13.7, Plt Count 207, MPV 9.9, Immature Gran % (Auto) 1.400 H, Neut % (Auto) 69.0, Lymph % (Auto) 19.5, [place] % (Auto) 8.4, Eos % (Auto) 1.3, Baso % (Auto) 0.4, Absolute Neuts (auto) 5.9, Absolute Lymphs (auto) 1.67, Nucleated RBC % 0, PT 13.1, INR 1.0, APTT 30.3, Sodium 140, Potassium 4.2, Chloride 105, Carbon Dioxide 24.1, Anion Gap 11, BUN 9, Creatinine 0.72, Estim Creat Clear Calc 245.08, Est GFR (MDRD) Non-Af 106, BUN/Creatinine Ratio 13.1, Glucose 124 H, Calcium 9.2, Troponin T High Sens 7 Imaging Radiology Impression Chest X-Ray 11/16/24 07:22 IMPRESSION: No acute cardiopulmonary process is identified radiographically. Reading Location: [facility] Assessment & Plan Assessment/Plan (1) Chest pain, atypical: PLAN: Plan This is 58-year-old gentleman being admitted for evaluation of atypical chest pain. 1. Atypical chest pain most likely musculoskeletal pain: TRAVON risk score 3 for with CAD risk factor, CAD stenosis, and severe angina. 3 serial troponins are negative. Repeat EKG also showed sinus bradycardia 53 bpm, no significant ST-T changes or difference from first EKG. ACS ruled out. Treadmill nuclear stress test ordered for tomorrow a.m. 2. Nausea/diaphoresis/headache probably due to nitroglycerin: Patient denies being thirsty or signs symptoms of heat exhaustion. Temperature normal. Symptomatic management with IV Reglan, Toradol. Discontinue nitroglycerin ointment. IV PPI 1 dose. Pantoprazole 40 Mg daily oral for tomorrow a.m. 3. Paroxysmal A-fib, CAD status post cardiac stent in October 2022: History of A-fib status post ablation/cryoablation pulmonary vein isolation in March 2017 at [facility] with Dr. Parkinson. Cardiac cath February 18 with patent LAD with otherwise mild disease. Metoprolol succinate home dose 50 mg twice daily decreased to once daily with holding parameter from tomorrow. CHADVASC score 1; therefore, continue baby aspirin. 2D echo in November 2022, LV size normal with and systolic function. EF 55 to 60% Wall motion normal. Normal diastolic function. SIMON February 2023, 1+ MR, trivial AI, mild TR. LA mildly enlarged. RA mildly enlarged no thrombus. 2-year-old female. Atrial septum patent. No PFO or defect. 4. Hypertension: BP in ED was high 201/97, currently 127/83. Monitor BP and titrate the medication accordingly 5. Obesity grade 1: BMI 31.9 kg/m?. Living will/advanced directive/end of life care: Patient does have living will or advanced directive. His is power of personal injury attorney for health after discussion of benefits/risks procedures involved with full code, DNR CC arrest and DNR CC, the patient opted for full code. Patient does want artificial life support including intubation, tube feed, ventilator and/chest compression, central venous catheter, vasopressor and DC shock if needed Total time spent in [id number] encounter in discussion of advanced directive 17 minutes. Charges/Coding Visit Charges Inpatient E&M: 07117 Init Hosp L3 Procedures Hospitalists Procedures: 28368 Advncd Care Plan 30 Min
[2024-11-16 10:10] LABS: Magnesium 1.8 mg/dL (1.5-2.2)
--- NOTE | 2024-11-16 10:13 | EKG12_ITS ---
Test Reason : CP Blood Pressure : */* mmHG Vent. Rate : 53 BPM Atrial Rate : 53 BPM P-R Int : 154 ms QRS Dur : 98 ms QT Int : 414 ms P-R-T Axes : 36 -3 40 degrees QTcB Int : 388 ms Sinus bradycardia Otherwise normal ECG When compared with ECG of 16-Nov-2024 11:29, MANUAL COMPARISON REQUIRED DATA IS UNCONFIRMED Confirmed by Bob Klein [id number]), editor magazine KAYLA MCDONALD ([id number]) on 11/17/2024 1:34:22 PM Referred By: JOEY Confirmed By: Bob Klein
[2024-11-16 10:45] LABS: Troponin T High Sens 2 HR < 6 ng/L (<=22)
[2024-11-16] MEDS: 0.9% Normal Saline (1000mL) 1,000 ML 75 ML IV (11:11)
--- NOTE | 2024-11-16 11:29 | EKG12_ITS ---
Test Reason : ADMIT Blood Pressure : */* mmHG Vent. Rate : 47 BPM Atrial Rate : 47 BPM P-R Int : 164 ms QRS Dur : 98 ms QT Int : 450 ms P-R-T Axes : 29 -6 23 degrees QTcB Int : 398 ms Sinus bradycardia Otherwise normal ECG When compared with ECG of 16-Nov-2024 07:23, MANUAL COMPARISON REQUIRED DATA IS UNCONFIRMED Confirmed by Bob Klein ([id number]), social media editor KAYLA MCDONALD ([id number]) on 11/18/2024 1:59:47 PM Referred By: Confirmed By: Bob Klein
[2024-11-16 12:28] LABS: Troponin T High Sens 4 HR 7 ng/L (<=22)
--- NOTE | 2024-11-16 15:43 | NURSING ---
Patient c/o of feeling like he has a fever, upon assessment patient has extreme amount of diaphoresis noted, nauseated and vomiting into emesis bag. Patient BP was 193/102 w/ HR of 49, Afebrile and SPo2 100%.EKG obtained, MD notified. Per MD going to order Reglan and Protonix, patient covered with cold wash cloths, ice packs, and BP 175/93 and HR 52. Patient noted feeling a little better. Stated he had sensation of being super hot and felt faint. Will continue to monitor.
[2024-11-17 03:30] VITALS: BP 157/87; PULSE 55; RESP 16; TEMP 36.6; O2SAT 97
[2024-11-17 04:51] VITALS: BMI 32.1
--- NOTE | 2024-11-17 05:55 | EKG12_ITS ---
Test Reason : AM EKG Blood Pressure : */* mmHG Vent. Rate : 51 BPM Atrial Rate : 51 BPM P-R Int : 164 ms QRS Dur : 100 ms QT Int : 444 ms P-R-T Axes : 41 -13 35 degrees QTcB Int : 409 ms Sinus bradycardia Otherwise normal ECG When compared with ECG of 16-Nov-2024 15:34, MANUAL COMPARISON REQUIRED DATA IS UNCONFIRMED Confirmed by Bob Klein ([id number]), editor managing director KAYLA MCDONALD ([id number]) on 11/17/2024 1:34:12 PM Referred By: Confirmed By: Bob Klein
[2024-11-17 06:39] VITALS: BP 159/86; PULSE 53; RESP 18; TEMP 36.4; O2SAT 98
[2024-11-17] MEDS: Aspirin E.C. 81 MG Tablet PO (06:41)
[2024-11-17] MEDS: 0.9% Saline Lock 10 ML Syringe IV (06:42)
[2024-11-17 06:48] VITALS: O2SAT 94
[2024-11-17 06:54] LABS: Hematocrit 35.7 % (40-54); Hemoglobin 12.8 g/dL (13.0-16.5); Mean Corp Hgb Conc 35.9 g/dL (32-36); Mean Corpuscular Volume 89.7 fL (80-94); Mean Platelet Vol. 10.3 fl (6.2-12.0); Platelet Count 180 K/mm3 (150-450); RBC Distribution Width CV 13.6 % (11.6-14.6); RBC Distribution Width SD 44.4 fl (35.1-43.9); Red Blood Count 3.98 M/mm3 (4.6-6.2); White Blood Count 6.7 K/mm3 (4.4-11.0)
[2024-11-17 08:11] LABS: Anion Gap 12 (5-15); BUN 10 mg/dL (4-19); BUN/Creat Ratio 13.5 RATIO (10-20); Calcium,Total 8.9 mg/dL (7.6-11.0); Carbon Dioxide 24.1 mmol/L (21.0-32.0); Chloride 104 mmol/L (98-108); Cholesterol 126 mg/dL (<=200); Estimated Creatinine Clearance 147.75 ml/min (50-250); Glucose 93 mg/dL (70-99); Low Density Lipoprotein Calc. 31 mg/dL; Potassium 4.1 mmol/L (3.3-5.1); Triglycerides 298 mg/dL; Very Low Density Lipoprotein 60 mg/dL (5-40); cholesterol:hdl ratio screen 3.51
[2024-11-17 09:54] VITALS: BP 147/83; PULSE 66; RESP 16; TEMP 36.8; O2SAT 96
[2024-11-17 09:55] VITALS: PULSE 67
[2024-11-17] MEDS: Metoprolol(XL)Succ 50 MG Tablet PO (09:55)
--- NOTE | 2024-11-17 11:50 | STRESSREP_ITS ---
Stress Test Report Exercise myocardial perfusion stress test. 58-year-old male with a history of chest pain Stress protocol: Resting EKG demonstrates sinus bradycardia with a rate of 53 bpm bpm resting blood pressure is 142/82 mmHg. The patient exercised according to the regular Omar protocol for a total duration of 6 minutes and 46 seconds attaining a maxi mum heart rate of 141 bpm which was 87% of maximum predicted heart rate; the maximum workload was 9.3 metabolic equivalents. At rest there were no ST or T wave changes noted to suggest ischemia and at peak exercise upsloping ST changes only were noted which did not meet the criteria for ischemia. No clinical angina was noted the test was terminated due to the target heart rate being achieved/fatigue. The peak blood pressure was 262/100 mmHg. this was a hypertensive response to exercise. Rate-pressure product was 26,000. Myocardial perfusion protocol. 14.7 mCi of technetium 99m sestamibi was injected at rest. The patient exercised according to regular Omar protocol for total duration of 6 minutes and 46 seconds and at peak exercise 44.8 mCi of technetium 99m sestamibi was injected stress images were obtained stress and rest images were reconstructed in comparing the short axis vertical long and horizontal long axis. Gated images were also obtained. Perfusion SPECT analysis: Review of the stress images demonstrate normal uptake of tracer noted in all areas of the myocardium. The resting images similarly demonstrate normal uptake of tracer noted in all areas of the myocardium. No areas of reversibility are noted to suggest ischemia no previous infarct was noted. Gated SPECT analysis: The gated ejection fraction is 66%. Conclusion: Normal exercise myocardial perfusion stress test at a high workload Preserved ejection fraction.
--- NOTE | 2024-11-17 12:54 | DCINST_ITS ---
Discharge Instructions DC O2, CPAP, BIPAP needs Home O2 Discharge instructions: No Dressing / Incision Discharge Activity: Return to Normal Activity Dressing / Incision Call your doctor if you observe: Fever of 101 or Higher, Shortness of breath, Dizziness, Fainting spells, Swelling in the ankles, Chest pain and Increased palpitations (irregular heartbeat) Follow Up Care Test Results: Test results from this visit will be discussed in further detail at your follow- up appointment, if applicable. Discharge Plan Admission Admit Date/Time: 11/16/24 08:57 Attending Provider: Martell Dennis Primary Care Provider: Jack Davenport Consulting Providers: Manoj Hill Discharge Orders/Prescriptions Prescriptions: Continued losartan 50 mg tablet 50 mg PO DAILY cholecalciferol (vitamin D3) 1,250 mcg (50,000 unit) capsule 50,000 unit PO QWEEK Patient Comments: TAKE 1 CAPSULE BY MOUTH ONCE A WEEK levothyroxine 200 mcg tablet 200 mcg PO QDAY metoprolol succinate 50 mg tablet extended release 24 hr 50 mg PO BID Qty: 180 3RF methotrexate sodium 2.5 mg tablet 20 mg PO QWEEK hydroxychloroquine 200 mg tablet 200 mg PO BID folic acid 1 mg tablet 1 mg PO QDAY tramadol 50 mg tablet 100 mg PO TID PRN (Reason: pain) escitalopram oxalate 20 mg tablet 20 mg PO DAILY ibuprofen [Advil] 200 mg tablet 400 mg PO Q6H PRN (Reason: fever or pain) Referrals / Follow Up: Jack Davenport DO [Primary Care Provider] - Within 1 Week Disposition Disposition (needs filled in before D/C Order can be placed): Home, Self Care
--- NOTE | 2024-11-17 13:11 | CASEMGMT ---
Patient has order for discharge. RN CM in to discuss needs at discharge. Patient denies needs or help at discharge. Patient had no further questions or concerns.
[2024-11-17 13:27] VITALS: BP 147/89; PULSE 53; RESP 17
--- NOTE | 2024-11-17 15:13 | DS.PCM_ITS ---
Providers Date of Admission: 11/16/24 Primary Care Physician: Dr. Jack Davenport DO Reason For Visit: UNSTABLE ANGINA Diagnosis Discharge Diagnosis (1) Chest pain, atypical: Status: Acute Code(s): R07.89 - Other chest pain Medications at Discharge Home Medications losartan 50 mg tablet 50 mg PO DAILY blood pressure 04/01/23 cholecalciferol (vitamin D3) 1,250 mcg (50,000 unit) capsule 50,000 unit PO QWEEK supplement 07/02/23 folic acid 1 mg tablet 1 mg PO QDAY supplement 04/07/24 hydroxychloroquine 200 mg tablet 200 mg PO BID arthritis 04/07/24 methotrexate sodium 2.5 mg tablet 20 mg PO QWEEK arthritis 04/07/24 levothyroxine 200 mcg tablet 200 mcg PO QDAY thyroid 08/20/24 metoprolol succinate 50 mg tablet,extended release 24 hr 50 mg PO BID blood pressure #180 tabs 08/20/24 tramadol 50 mg tablet 100 mg PO TID PRN pain 08/20/24 escitalopram oxalate 20 mg tablet 20 mg PO DAILY depression 11/16/24 ibuprofen 200 mg tablet (Advil) 400 mg PO Q6H PRN fever or pain 11/16/24 Hospital Course Operations None Procedures Nuclear stress test Summary of Care Provided Minutes Spent on Discharge: 40 Hospital Course: Per HPI: MANISHA MENDOZA, is a 58 M with history of CAD status post stent on 11/26/2022 came to ED with chest discomfort/pressure since . It started when he was working on the roof. He carries sometimes heavy load 15 to 20 pounds. He states chest discomfort is constant but waxes and wanes on mild exertion/walking associated with shortness of breath. Currently is not short of breath while sitting or laying down. Mild dizziness at home but no syncope. In ED, twelve-lead EKG shows sinus bradycardia but no ST-T changes. First troponin negative. He has nitro ointment. He was very diaphoretic with headache 02/05. Nitro ointment discontinued Hospital Course: 1. Atypical chest pain?58-year-old male presented to the hospital with atypical chest pain/heaviness. He was exerting himself more than usual over the last couple days especially in the heat and noticed that he had difficulty catching his breath. He denies any lightheadedness or dizziness during this event. He came to the hospital and troponins were unremarkable and EKG was nonischemic. Stress test was performed which was also negative and nonischemic. He was little bit concerned about his blood pressure on admission which could gone up to 193 systolic however we discussed how multiple things can affect blood pressure and that he is currently closer to his baseline and that he will need to follow-up with his PCP as an outpatient to continue to monitor his blood pressure and continue his home medications. Given that his stress test was normal I discussed with him the possibility for discharge today and he and his expressed understanding of the risks and benefits of going home and would like to go home today. We have extensive discussion on lifestyle modifications including exercise and diet. 2. Essential hypertension, anxiety, depression, hypothyroidism, paroxysmal A- fib status post post ablation, coronary artery disease status post stent on chronic medical conditions, his home medications were continued where appropriate. Physical Exam Narrative General: Alert, Oriented x3, Cooperative, No apparent distress HEENT: Atraumatic, PERRLA, EOMI, Normocephalic Oral: Moist Mucosa Neck: Supple, No JVD Lungs: Diminished, Normal air movement, No rhonchi, No wheeze, No rales Cardiovascular: Regular rate, Regular Rhythm, Normal S1, Normal S2, No murmurs Abdomen: Soft, Non Tender, Non-Distended, No Hepato-splenomegaly Extremities: No edema, Capillary Refill Less than 3 Seconds Skin: No rashes, No breakdown Musculoskeletal: No Tenderness to Palpation of Joints or Extremities Neurological: No focal neurological deficits, Motor Exam 5/5 strength throughout, Sensory exam intact to light touch and pain Psych/Mental Status: Normal Affect, Appropriate Weight / BMI Weight Weight: 256 lb 13.416 oz Body Mass Index (BMI) 32.1 ABG / Lab / Microbiology Data 11/17/24 05:13 11/17/24 05:13 Laboratory: Laboratory Results - last 24 hr 11/17/24 05:13: WBC 6.7, RBC 3.98 L, Hgb 12.8 L, Hct 35.7 L, MCV 89.7, MCH 32.2 H, MCHC 35.9, RDW Std Deviation 44.4 H, RDW Coeff of Alondra 13.6, Plt Count 180, MPV 10.3, Sodium 140, Potassium 4.1, Chloride 104, Carbon Dioxide 24.1, Anion Gap 12, BUN 10, Creatinine 0.75, Estim Creat Clear Calc 147.75, Est GFR (MDRD) Non-Af 105, BUN/Creatinine Ratio 13.5, Glucose 93, Calcium 8.9, Triglycerides 298 H, Cholesterol 126, LDL Cholesterol, Calc 31, VLDL Cholesterol 60 H, HDL Cholesterol 36 L, Cholesterol/HDL Ratio 3.51, TSH 2.320 D/C Instructions Call your doctor if you observe: Fever of 101 or Higher, Shortness of breath, Dizziness, Fainting spells, Swelling in the ankles, Chest pain and Increased palpitations (irregular heartbeat) DC O2, CPAP, BIPAP Needs Home O2 Discharge instructions: No Meaningful Use Info Meaningful Use Meaningful Use Diagnoses (Choose all that apply): None applicable Discharge Plan Admission Admit Date/Time: 11/16/24 08:57 Attending Provider: Martell Dennis Primary Care Provider: Jack Davenport Consulting Providers: Manoj Hill Discharge Orders/Prescriptions Prescriptions: Continued losartan 50 mg tablet 50 mg PO DAILY cholecalciferol (vitamin D3) 1,250 mcg (50,000 unit) capsule 50,000 unit PO QWEEK Patient Comments: TAKE 1 CAPSULE BY MOUTH ONCE A WEEK levothyroxine 200 mcg tablet 200 mcg PO QDAY metoprolol succinate 50 mg tablet extended release 24 hr 50 mg PO BID Qty: 180 3RF methotrexate sodium 2.5 mg tablet 20 mg PO QWEEK hydroxychloroquine 200 mg tablet 200 mg PO BID folic acid 1 mg tablet 1 mg PO QDAY tramadol 50 mg tablet 100 mg PO TID PRN (Reason: pain) escitalopram oxalate 20 mg tablet 20 mg PO DAILY ibuprofen [Advil] 200 mg tablet 400 mg PO Q6H PRN (Reason: fever or pain) Referrals / Follow Up: Jakc Davenport, [Primary Care Provider] - Within 1 Week Disposition Disposition (needs filled in before D/C Order can be placed): Home, Self Care Charges/Coding Visit Charges Inpatient E&M: 41610 Disch Hosp >30min
== END 2024-11-17 13:33 | disposition home or self-care (01) ==
LOC: ED 08:04 → PCU 09:17
PROVIDERS: Admitting Provider Internal Medicine; Emergency Provider Emergency Medicine; PCP Family Medicine; Visit Provider Family Medicine
DX: R07.89 Other chest pain (principal); I48.0 Paroxysmal atrial fibrillation; I25.10 Atherosclerotic heart disease of native coronary artery without angina pectoris; F41.9 Anxiety disorder, unspecified; I25.2 Old myocardial infarction; M54.9 Dorsalgia, unspecified; I10 Essential (primary) hypertension; R00.1 Bradycardia, unspecified; E03.9 Hypothyroidism, unspecified; Z87.891 Personal history of nicotine dependence; R06.09 Other forms of dyspnea; E78.5 Hyperlipidemia, unspecified; Z82.49 Family history of ischemic heart disease and other diseases of the circulatory system; Z95.5 Presence of coronary angioplasty implant and graft; Z79.899 Other long term (current) drug therapy; Z79.890 Hormone replacement therapy; F32.A Depression, unspecified; E66.9 Obesity, unspecified; Z68.31 Body mass index [BMI] 31.0-31.9, adult
CPT/HCPCS: 36415; 71045; 78452; 80048; 80061; 83735; 84443; 84484; 85025; 85027; 85610; 85730; 93005; 93017; 94668; 96361; 96372; 96374; 96375; 99221; 99252; 99285; A9500; A4216; G0378; G0463